=== PATIENT | male | born 1965 | race Hispanic/Latino ===

== ENCOUNTER 2019-09-02 07:52 | Day surgery (SDC) | payer OTHER ==
[2019-08-31 10:04] VITALS: BP 155/78
[~2019-09-02] VITALS: Ht 172.7 cm; Wt 96.9 kg
[2019-09-02] VITALS (14 sets, daily range): BP systolic 104–135; BP diastolic 57–76
[~2019-09-02 07:52] MED LIST: METF-444 PO; SODIUM CHLORIDE 0.9% 1000ML 1,000 ML IV SCH
[2019-09-02 08:35] LABS: BASOPHILS % (AUTO) 0.7 % (0.0-5.0); EOSINOPHILS % (AUTO) 4.2 % (0.0-8.0); HEMATOCRIT 42.8 % (42-54); LYMPHOCYTES % (AUTO) 31.9 % (21.0-51.0); MEAN CORPUSCULAR HEMOGLOBIN 30.4 pg (27.0-33.0); MEAN CORPUSCULAR VOLUME 89.4 fL (79-99); MONOCYTES % (AUTO) 8.8 % (3.0-13.0); NEUTROPHILS % (AUTO) 54.4 % (40.0-77.0); PLATELET COUNT (AUTO) 139 K/uL (130-400); RED BLOOD CELL COUNT(AUTO) 4.79 MIL/uL (4.50-6.20); RED CELL DISTRIBUTION WIDTH 13.9 % (11.0-15.5); WHITE BLOOD COUNT (AUTO) 5.2 K/uL (4.8-10.8)
[2019-09-02 09:02] LABS: POTASSIUM 4.6 mmol/L (3.5-5.1)
[2019-09-02 09:09] LABS: ALBUMIN 3.5 g/dL (3.5-5.0); BILIRUBIN,DIRECT 0.1 mg/dL (0.0-0.3); BILIRUBIN,TOTAL 0.3 mg/dL (0.2-1.0)
[2019-09-02] MEDS ORDERED: LIDOCAINE PF 2% 5ML ABBOJECT ONE (09:09)
[2019-09-02] MEDS ORDERED: ONDANSETRON HCL 4 MG/2 ML VIAL ONE (09:10)
[2019-09-02] MEDS ORDERED: PROPOFOL 10 MG/ML 20ML VIAL IV ONE ×2 (09:10→10:22)
[2019-09-02] MEDS ORDERED: FENTANYL CITRATE PF 50 MCG/1 ML 2ML VIAL ONE ×2 (09:10→10:52)
[2019-09-02] MEDS ORDERED: ROCURONIUM 10MG/1ML SYR 10 MG/ML ML ONE (09:10)
[2019-09-02] MEDS ORDERED: MIDAZOLAM HCL 1 MG/ML 2ML VIAL ONE (09:11)
[2019-09-02] MEDS ORDERED: HEPARIN SODIUM 1000UNIT/ML 10ML VIAL ONE (09:25)
[2019-09-02] MEDS ORDERED: EPHEDRINE SULFATE 50 MG/ML AMPULE ONE (09:48)
[2019-09-02] MEDS ORDERED: DEXAMETHASONE SOD PHOSPHATE 10MG/ML 1ML VIAL ONE (09:54)
[2019-09-02] MEDS ORDERED: MEPERIDINE-PF 25 MG/ML SYG ONE (09:56)
[2019-09-02] MEDS ORDERED: NEOSTIGMINE 5MG/5ML SYR IV ONE (10:32)
[2019-09-02] MEDS ORDERED: GLYCOPYRROLATE 1 MG/5 ML SYRINGE ONE (10:32)
[2019-09-02] MEDS ORDERED: KETOROLAC TROMETHAMINE 30MG/ML ONE (10:35)
== END 2019-09-02 12:33 | disposition home or self-care (01) ==
LOC: DAH 07:52
PROVIDERS: ATTEND Surgery
DX: K80.10 Calculus of gallbladder with chronic cholecystitis without obstruction (principal); E11.9 Type 2 diabetes mellitus without complications
CPT/HCPCS: 36415; 47562; 80048; 80076; 82948 ×2; 85025; 88304; A4215; A4221; A4222; A4223; A4450; A4649; A4663; A6260; C1769 ×4; J1100; J1644; J1885; J2001; J2175; J2250; J2405; J2704 ×2; J2710; J3010 ×2; J3490 ×2; J7030 ×2; J7120